=== PATIENT | male | born 1975 | race Caucasian/White ===

== ENCOUNTER 2017-06-06 14:26 | Emergency (ER) | payer SELFPAY ==
[2017-06-06 14:38] VITALS: BP 215/125; PULSE 78; RESP 18; TEMP 98.6; O2SAT 100
[2017-06-06 15:51] LABS: AUTOMATED NEUTROPHIL # 4.6 TH/MM3 (1.8-7.7); BASOPHIL % 0.3 % (0.0-2.0); EOSINOPHIL # 0.1 TH/MM3 (0-0.4); EOSINOPHIL % 0.9 % (0.0-4.0); HEMATOCRIT 43.3 % (39.0-51.0); HEMOGLOBIN 14.5 GM/DL (13.0-17.0); LYMPH % 34.7 % (9.0-44.0); LYMPHOCYTE # 2.8 TH/MM3 (1.0-4.8); MEAN CELL VOLUME 94.8 FL (80.0-100.0); MEAN CORPUSCULAR HEMOGLOBIN 31.8 PG (27.0-34.0); MEAN CORPUSCULAR HGB CONC 33.6 % (32.0-36.0); MEAN PLATELET VOLUME 7.5 FL (7.0-11.0); MONO % 7.1 % (0.0-8.0); MONOCYTE # 0.6 TH/MM3 (0-0.9); PLATELET COUNT 276 TH/MM3 (150-450); RED BLOOD COUNT 4.57 MIL/MM3 (4.50-5.90); RED CELL DISTRIBUTION WIDTH 13.1 % (11.6-17.2); WHITE BLOOD COUNT 8.1 TH/MM3 (4.0-11.0)
[2017-06-06 16:03] LABS: BICARBONATE 27.3 MEQ/L (21.0-32.0); CALCIUM 9.4 MG/DL (8.5-10.1); CREATININE 1.33 MG/DL (0.60-1.30)
--- NOTE | 2017-06-06 16:29 | PD ---
HPI Chief Complaint: Hypertension Time Seen by Provider: 16:22 Travel History International Travel<30 days: Yes Contact w/Intl Traveler<30days: Yes Name of Country Traveled to: Patient is from [place] Traveled to known affect area: No History of Present Illness HPI This is a 42-year-old male with history of hypertension who presents for evaluation of hypertension and headache. He reports a biparietal headache which started this morning which is mild, aching, and he reports that he gets similar headaches whenever his blood pressure is elevated. He reports a history of hypertension, ran out of an unknown antihypertensive medication 3 months ago. He is currently on vacation from [place], he arrived in May and is leaving in June. Denies shortness of breath, blurred vision, chest pain, nausea, vomiting, dizziness, lightheadedness. He has no other significant past medical history. No other complaints. [facility] Social History Alcohol Use: No Tobacco Use: No Substance Use: No Allergies-Medications (Allergen,Severity, Reaction): Coded Allergies: No Known Allergies (Verified Allergy, Unknown, 06/06/17) Reported Meds & Prescriptions Reported Meds & Active Scripts Active Amlodipine (Amlodipine Besylate) 5 Mg Tab 5 Mg PO DAILY Review of Systems Except as stated in HPI: all other systems reviewed are Neg Physical Exam Narrative GENERAL: Well-developed well-nourished male in no acute distress, hypertensive. SKIN: Warm and dry. HEAD: Atraumatic. Normocephalic. EYES: Pupils equal and round. No scleral icterus. No injection or drainage. ENT: No nasal bleeding or discharge. Mucous membranes pink and moist. NECK: Trachea midline. No JVD. CARDIOVASCULAR: Regular rate and rhythm. No murmur appreciated. RESPIRATORY: No accessory muscle use. Clear to auscultation. Breath sounds equal bilaterally. GASTROINTESTINAL: Abdomen soft, non-tender, nondistended. Hepatic and splenic margins not palpable. MUSCULOSKELETAL: No obvious deformities. No clubbing. No cyanosis. No edema. NEUROLOGICAL: Awake and alert. No obvious cranial nerve deficits. Motor grossly within normal limits. Normal speech. Data Data Last Documented VS Vital Signs Date Time Temp Pulse Resp B/P (MAP) Pulse Ox O2 Delivery O2 Flow Rate FiO2 06/06/17 17:28 97.7 78 20 152/94 (113) 99 Room Air Orders Orders Complete Blood Count With Diff (06/06/17 14:41) Basic Metabolic Panel (Bmp) (06/06/17 14:41) Labetalol Inj (Trandate Inj) (06/06/17 16:30) Electrocardiogram (06/06/17 ) Labs Laboratory Tests Test 06/06/17 15:14 White Blood Count 8.1 TH/MM3 Red Blood Count 4.57 MIL/MM3 Hemoglobin 14.5 GM/DL Hematocrit 43.3 % Mean Corpuscular Volume 94.8 FL Mean Corpuscular Hemoglobin 31.8 PG Mean Corpuscular Hemoglobin Concent 33.6 % Red Cell Distribution Width 13.1 % Platelet Count 276 TH/MM3 Mean Platelet Volume 7.5 FL Neutrophils (%) (Auto) 57.0 % Lymphocytes (%) (Auto) 34.7 % Monocytes (%) (Auto) 7.1 % Eosinophils (%) (Auto) 0.9 % Basophils (%) (Auto) 0.3 % Neutrophils # (Auto) 4.6 TH/MM3 Lymphocytes # (Auto) 2.8 TH/MM3 Monocytes # (Auto) 0.6 TH/MM3 Eosinophils # (Auto) 0.1 TH/MM3 Basophils # (Auto) 0.0 TH/MM3 CBC Comment DIFF FINAL Differential Comment Blood Urea Nitrogen 16 MG/DL Creatinine 1.33 MG/DL Random Glucose 77 MG/DL Calcium Level 9.4 MG/DL Sodium Level 137 MEQ/L Potassium Level 4.0 MEQ/L Chloride Level 104 MEQ/L Carbon Dioxide Level 27.3 MEQ/L Anion Gap 6 MEQ/L Estimat Glomerular Filtration Rate 58 ML/MIN MDM Medical Decision Making Medical Screen Exam Complete: Yes Emergency Medical Condition: Yes Medical Record Reviewed: Yes Differential Diagnosis Hypertensive urgency, intracranial hemorrhage, subarachnoid hemorrhage, central hypertension, medication noncompliance Narrative Course Basic lab work was obtained in triage. The patient was given IV labetalol. CBC is unremarkable. BMP reveals a creatinine of 1.[address] the brain was initially ordered however the patient declined it and his headache slowly resolved after the administration of labetalol. His blood pressure improved. At this point in time the plan will be to discharge the patient with a 30 day supply of amlodipine. He understands that he needs to follow-up for continuing management of his chronic hypertension. He is stable for discharge. Diagnosis Primary Impression: Hypertension Additional Instructions: Medication as prescribed. Follow-up close with primary care physician. Return for any emergent medical conditions. Med/Other Pt SpecificInfo: Prescription(s) given Scripts Amlodipine (Amlodipine) 5 Mg Tab 5 MG PO DAILY for Blood Pressure Management, #30 TAB 0 Refills Prov: Yeyo West MD 06/06/17 Disposition: 01 DISCHARGE HOME Condition: Stable Edil Sanchez Jun 06, 2017 16:29
[2017-06-06] MEDS ORDERED: LABETALOL HCL 100 MG/20 ML VIAL IV PUSH ONE (16:30)
[2017-06-06 16:38] VITALS: BP 172/111; PULSE 72; RESP 15; TEMP 98.2; O2SAT 99
[2017-06-06 17:28] VITALS: BP 152/94; PULSE 78; RESP 20; TEMP 97.7; O2SAT 99
[2017-06-06] MEDS ORDERED: AMLO5TAB2 PO (17:45)
[2017-06-06 18:00] VITALS: BP 150/81; TEMP 97.8
--- NOTE | 2017-06-07 22:51 | EKG ---
Date Performed: 06/06/2017 Time Performed: 17:17:28 PTAGE: 42 years EKG: Sinus rhythm BORDERLINE LEFT AXIS DEVIATION MODERATE VOLTAGE CRITERIA FOR LVH, CONSIDER NORMAL VARIANT BORDERLINE ECG NO PREVIOUS TRACING DOCTOR: Kevin Ramírez Interpretating Date/Time 06/07/2017 22:49:38
== END 2017-06-06 18:06 | disposition home or self-care (01) ==
LOC: NEPE 14:26
DX: I10 Essential (primary) hypertension (principal)
CPT/HCPCS: 80048; 85025; 93005; 96374